=== PATIENT | male | born 2000 | race African-American/Black ===

== ENCOUNTER 2020-01-20 12:17 | Emergency (ER) | payer BC, OTHER ==
[~2020-01-20] VITALS: Ht 172.7 cm; Wt 79.4 kg
[2020-01-20 13:46] VITALS: BP 136/85
== END 2020-01-20 13:48 | disposition home or self-care (01) ==
LOC: ER 12:17
DX: M25.512 Pain in left shoulder (principal); X50.1XXA Overexertion from prolonged static or awkward postures, initial encounter; Y93.89 Activity, other specified; Y92.89 Other specified places as the place of occurrence of the external cause; Y99.8 Other external cause status